=== PATIENT | male | born 1995 | race Two or more races ===

== ENCOUNTER 2018-02-13 14:45 | Emergency (ER) | payer OTHER ==
--- NOTE | 2018-02-13 16:15 | ED Physician Documentation ---
PD HPI HEAD INJURY - Stated complaint Stated Complaint: PRESSURE LF SIDE OF HEAD - Chief complaint Chief Complaint: Neuro - History obtained from History obtained from: Patient - History of Present Illness Mechanism of head injury: Other (The last for 5 days he has had left-sided facial and head pressure, nausea. Nothing sudden in onset or severe. He just feels fatigued. There is no associated fevers, chills, neck stiffness, cough or recent travel.) Review of Systems Constitutional: reports: Fatigue. denies: Fever, Chills Nose: denies: Rhinorrhea / runny nose, Congestion Throat: denies: Sore throat Cardiac: denies: Chest pain / pressure, Palpitations Respiratory: denies: Dyspnea, Cough PD PAST MEDICAL HISTORY - Present Medications Home Medications: Ambulatory Orders Medication Instructions Recorded Confirmed Ibuprofen [Motrin] 800 mg PO Q8H PRN #30 tablet 02/13/18 Ondansetron Odt [Zofran] 4 mg TL Q6H PRN #10 tablet 02/13/18 - Allergies Allergies/Adverse Reactions: Allergies Allergy/AdvReac Type Severity Reaction Status Date / Time Penicillins Allergy Respiratory Verified 02/13/18 14:52 PD ED PE NORMAL - Vitals Vital signs reviewed: Yes - General General: Alert and oriented X 3, No acute distress - HEENT HEENT: PERRL, EOMI, Ears normal, Moist mucous membranes, Pharynx benign, Dentition benign - Neck Neck: Supple, no meningeal sign, No bony TTP - Cardiac Cardiac: RRR, No murmur - Respiratory Respiratory: No respiratory distress, Clear bilaterally - Abdomen Abdomen: Non tender - Derm Derm: No rash - Neuro Neuro: Alert and oriented X 3, tax analyst 2-12 intact Eye Opening: Spontaneous Motor: Obeys Commands Verbal: Oriented GCS Score: 15 - Psych Psych: Normal mood, Normal affect Results - Vitals Vitals: Vital Signs - 24 hr 02/13/18 14:51 Temperature 36.7 C Heart Rate 75 Respiratory 22 Rate Blood Pressure 138/70 H O2 Saturation 96 Oxygen O2 Source Room air PD MEDICAL DECISION MAKING - ED course ED course: Gentleman presents with facial pressure, nausea. It was not sudden in onset or severe so it is in a subarachnoid hemorrhage. Could be consistent with sinus infection but he does not really have respiratory symptoms. Seems most like a viral syndrome. - Sepsis Event Vital Signs: Vital Signs - 24 hr 02/13/18 14:51 Temperature 36.7 C Heart Rate 75 Respiratory 22 Rate Blood Pressure 138/70 H O2 Saturation 96 Oxygen O2 Source Room air Departure - Departure Disposition: 01 Home, Self Care Clinical Impression: Viral syndrome Condition: Good Record reviewed to determine appropriate education?: Yes Instructions: ED Viral Syndrome Prescriptions: Ibuprofen [Motrin] 800 mg PO Q8H PRN #30 tablet PRN Reason: PAIN &/OR FEVER Ondansetron Odt [Zofran] 4 mg TL Q6H PRN #10 tablet PRN Reason: Nausea / Vomiting Comments: Call your doctor to arrange a follow-up appointment, make the next available appointment. In the interim, return anytime if worse or if new symptoms develop. Your blood pressure was elevated today on check into the emergency department. This does not mean that you have hypertension, it is a common phenomenon to come to the emergency department and have elevated blood pressure. I recommend that you see your primary care physician within the week to have it rechecked when you are feeling better.
[2018-02-13 16:21] VITALS: BP 132/66
== END 2018-02-13 16:21 | disposition home or self-care (01) ==
LOC: ED 14:45
DX: B34.9 Viral infection, unspecified (principal); R03.0 Elevated blood-pressure reading, without diagnosis of hypertension
CPT/HCPCS: 99282; 99283

== ENCOUNTER 2018-09-09 17:52 | Emergency (ER) | payer OTHER ==
--- NOTE | 2018-09-09 19:30 | ED Physician Documentation ---
PD HPI ABD PAIN - Stated complaint Stated Complaint: MALE - Chief complaint Chief Complaint: Abd Pain - History obtained from History obtained from: Patient - History of Present Illness Timing - onset: Other (For the last week and a half or so he is noticed a bulge in his left scrotum especially when he sitting down. Its uncomfortable more than painful. No abdominal pain. He had never had this before.) Review of Systems Constitutional: reports: Reviewed and negative Throat: reports: Reviewed and negative Cardiac: reports: Reviewed and negative Respiratory: reports: Reviewed and negative PD PAST MEDICAL HISTORY - Past Medical History Past Medical History: No Cardiovascular: None Respiratory: None Neuro: None Endocrine/Autoimmune: None GI: None : None HEENT: None Psych: None Musculoskeletal: None Derm: None - Past Surgical History Past Surgical History: Yes HEENT: Tonsil/Adenoidectomy - Present Medications Home Medications: Ambulatory Orders Medication Instructions Recorded Confirmed Ibuprofen [Motrin] 800 mg PO Q8H PRN #30 tablet 02/13/18 Ondansetron Odt [Zofran] 4 mg TL Q6H PRN #10 tablet 02/13/18 Doxycycline Hyclate 100 mg PO BID #20 capsule 09/09/18 - Allergies Allergies/Adverse Reactions: Allergies Allergy/AdvReac Type Severity Reaction Status Date / Time Penicillins Allergy Respiratory Verified 02/13/18 14:52 - Social History Does the pt smoke?: Yes Smoking Status: Current every day smoker Does the pt drink ETOH?: Yes Does the pt have substance abuse?: No - Immunizations Immunizations are current?: Yes - POLST Patient has POLST: No PD ED PE NORMAL - Vitals Vital signs reviewed: Yes - General General: Alert and oriented X 3, No acute distress - Male Male : Other (Fullness at the top of the left testicle without tenderness. Most consistent with varicocele. No hernia mass.) - Back Back: No CVA TTP, No spinal TTP - Neuro Neuro: Alert and oriented X 3, Normal speech Results - Vitals Vitals: Vital Signs - 24 hr 09/09/18 09/09/18 18:00 22:02 Temperature 37 C 36.8 C Heart Rate 75 65 Respiratory 18 16 Rate Blood Pressure 121/60 126/77 O2 Saturation 100 98 Oxygen O2 Source Room air - Rads (name of study) SCROTAL SONO Radiology: EMP read contemporaneously (ACUTE EPIDYDYMOORCHITIS) Departure - Departure Disposition: 01 Home, Self Care Clinical Impression: Acute epididymitis Condition: Good Record reviewed to determine appropriate education?: Yes Instructions: ED Epididymitis Prescriptions: Doxycycline Hyclate 100 mg PO BID #20 capsule Comments: Call your doctor to arrange a follow-up appointment, make the next available appointment. In the interim, return anytime if worse or if new symptoms develop.
--- NOTE | 2018-09-09 22:13 | Ultrasound Report ---
Reason: L testicular swelling, suspect varicocele Procedure Date: 09/09/2018 Accession Number: [id number] / [id number] Procedure: US - Testicle w/Doppler CPT Code: FULL RESULT: EXAM: SCROTAL ULTRASOUND EXAM DATE: 09/09/2018 09:22 PM. CLINICAL HISTORY: Left scrotal swelling. COMPARISON: None. TECHNIQUE: Real-time scanning was performed with static images obtained. Color-flow images were utilized. FINDINGS: Right: Testis: 4 x 2.4 x 3 cm. Normal size and echotexture. No mass, calcification, or abnormal blood flow. Epididymis: 0.7 x 0.9 x 0.9 cm. Normal size and echotexture. No mass or abnormal blood flow. Hydrocele: None. Varicocele: None. Left: Testis: 4.4 x 2.3 x 3.4 cm. No mass. There is diffuse hyperemia. Epididymis: 0.7 x 0.8 x 0.6 cm. Diffusely hyperemic. There is also spermatic cord hyperemia. Hydrocele: None. Varicocele: None. IMPRESSION: 1. Left epididymoorchitis. RADIA
[2018-09-09] MEDS ORDERED: DOXYCYCLINE 100 MG TABLET PO STA (22:19)
[2018-09-09] MEDS ORDERED: cefTRIAXone 250 MG VIAL IM STA (22:19)
[2018-09-09] MEDS ORDERED: LIDOCAINE 1% 2 ML VIAL MC ONE (22:19)
[2018-09-09 22:50] VITALS: BP 121/68
== END 2018-09-09 22:49 | disposition home or self-care (01) ==
LOC: ED 17:52
DX: N45.3 Epididymo-orchitis (principal); F17.200 Nicotine dependence, unspecified, uncomplicated
CPT/HCPCS: 76870; 93975; 96372; 99283; A9270